=== PATIENT | female | born 1975 | race Caucasian/White ===

== ENCOUNTER → 2024-12-16 08:52 | Outpatient (REF) | payer OTHER, SELFPAY | LOC: WDC 08:52 | DX: N63.11 Unspecified lump in the right breast, upper outer quadrant (principal) | CPT/HCPCS: 76642; 77062; 77066 ==

== ENCOUNTER 2025-03-20 15:07 | Emergency (ER) | payer OTHER, SELFPAY ==
[2025-03-20 15:11] VITALS: BP 129/89
[2025-03-20 15:41] LABS: Hematocrit 37.9 % (37.0-47.0); Hemoglobin 12.5 g/dL (12.0-16.0); Mean Corp Hgb Conc. 33.0 g/dL (33.0-37.0); Mean Corpuscular Volume 88.6 fL (81.0-99.0); Nucleated Red Blood Cells % 0 %; Platelet Count 264 10^3/uL (130-400); Red Cell Dist. Width 11.7 % (11.5-14.5)
[2025-03-20 15:51] LABS: INR 0.96; PT 13.1 Sec (11.4-14.6)
[2025-03-20 15:54] LABS: ALT (SGPT) 19 U/L (0-35); AST (SGOT) 24 U/L (14-36); Albumin 4.3 g/dl (3.5-5.0); Alkaline Phosphatase 75 U/L (38-126); Blood Urea Nitrogen 9 mg/dl (7-17); Calcium 8.5 mg/dl (8.4-10.2); Carbon Dioxide 23 mmol/L (22-30); Chloride 108 mmol/L (98-107); Glucose 98 mg/dl (70-99); Potassium 4.1 mmol/L (3.5-5.1); Sodium 136 mmol/L (135-145); Total Protein 6.8 g/dl (6.3-8.2); eGFR > 60.00
[2025-03-20 16:05] LABS: Troponin I < 0.012 ng/ml
[2025-03-20 18:00] VITALS: BP 133/94
[2025-03-20 18:54] VITALS: BMI 26.7
[2025-03-20 18:56] VITALS: BP 133/94
[2025-03-20 19:00] VITALS: BP 118/76
[2025-03-20] MEDS: NSS 1000 IV (19:17)
--- NOTE | 2025-03-20 20:42 | ED.GENMED ---
History of Present Illness
General
Chief Complaint: Heart Rate Problem
Source: patient
Exam Limitations: none
Time Seen by Provider: 03/20/25 18:05
Nursing documentation reviewed up to this point in time: agreed with
History of Present Illness
History of Present Illness:
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
On levothyroxine
Anxiety
PVCs, previous echocardiogram which was transthoracic showing 3.2 cm dilation of the ascending aorta
Presents for feeling racing heartbeat and irregular, starting about 2 or 3 days ago she started feeling like she was having extra beats. Today around noon while shopping with her daughter she started feeling even increased extra beats as well as
more heart racing and anxiety with SOB
no pleuritic pain
has not had DVT/PE, recent travel, hormone use, recent surgery
pt is worried because of her aortic dilation
she has no exertional symptoms
feels better now than she did earlier whree her racing hr felt like it lasted a few hours
she never checked her pulse
no passing out, nausea, vomiting
has anxiety, wasn't sure if this was anxiety attack
Past History
Past History
ED Past Medical History: Asthma, Other (sinus problems) and Other (Hypothyroidism)
ED Past Surgical History: Cholecystectomy, and Tonsilectomy
Social History
Tobacco: Non-smoker
Alcohol: None
Drug: None
Personal: Single
Living: with family
Family History
Family History: Asthma
Review of Systems
Review of Systems
Allergies reviewed?: Yes
All Other Systems: Not applicable
Phy Exam
Physical Exam
Physical Exam:
GENERAL: Alert , anxious mildly
EYE: pupils equal and reactive
NECK: Supple
ENT: o/p clr, mmm.
CARDIAC: Regular rate and rhythm .no tachycardia; VERY occ PVCs on monitor
no murmur
LUNGS: Clear breath sounds bilaterally, no acute respiratory distress, no wheezes/rales/rhonchi
ABDOMEN: Soft, without focal tenderness, no r/g, no cvat, normal bowel sounds
NEUROLOGICAL: Alert and oriented, no focal neuro deficits
SKIN: Warm and dry, skin intact.
MUSCULOSKELETAL: No edema, well perfused. neg yudi's sign
PSYCH: Normal and appropriate interaction. mildly anxious; in good spirits
Course
Orders/Labs/Results
Orders:
Orders
03/20/25 15:13
Electrocardiogram (*1) Urgent
Reason for Study: Chest Pain
EKG- Treatment ONCE
03/20/25 15:33
Complete Blood Count/With Diff Urgent
Comprehensive Metabolic Panel Urgent
Free T4 Urgent
Prothrombin Time Urgent
TSH Reflex To Free T4 Urgent
Comment: ADD ON
Troponin I Urgent
03/20/25 18:44
CT Chest Angio W/wo Iv Contras Urgent
Comment:
Reason For Exam: dilated aorta, palpitations, sob
0.9% Sodium Chloride 1000 ml [Nss] 1,000 ml IV BOLUS
03/20/25 20:43
Add On- LAB Urgent
Tests Added?: tsh free t4
Abnormal Lab Results
03/20/25
15:33
Abs Immat Gran (auto) 0.1 H 10^3/uL
(0-0.05)
Absolute Eos (auto) 0.8 H 10^3/uL
(0-0.7)
Immature Gran % 2.0 H %
(0-0.5)
Lymphocytes % 19.1 L %
(20.5-51.1)
Eosinophils % 11.4 H %
(0-6)
Chloride 108 H mmol/L
(98-107)
TSH (Reflex) 0.14 L uIU/ml
(0.47-4.68)
03/20/25 15:33
03/20/25 15:33
Vital Signs
Initial and Last Documented VS:
Initial Vital Signs
Temp Pulse Resp BP Pulse Ox
37.1 C 68 16 129/89 98
03/20/25 15:11 03/20/25 15:11 03/20/25 15:11 03/20/25 15:11 03/20/25 15:11
Last Documented Vital Signs
Temp Pulse Resp BP Pulse Ox
37.1 C 71 14 118/76 100
03/20/25 15:11 03/20/25 19:30 03/20/25 19:30 03/20/25 19:00 03/20/25 20:43
MDM/Problems Addressed
Differential Diagnosis Includes:
hyperthyroid, palpitations, anxiety, PE, aortic aneurysm
MDM/Problems Addressed:
49 y/o F
anxiety
aware of aortic dilation seen on TTE within the past year, just with plan for surveillance
pvcs
here with feelin of elevatd HR and anxiety with sob and palpitations
over the past few days but then worse the past few hours
no significant chest pain/bakc pain, no syncope
ekg is sinus rhythm with NEW RBBB; no ischemic changes
pulse ox normal
lungs clear
seems anxious
trop neg, lytes normal
tsh mildly low but free t4 nomral
probalby needs dec on her synthroid which could be contributing
cta shows that the measurements appear WNL without dilation
her previous ehco was not EVON
d/w ed attending
d/c home
*Pulse Oximetry
SaO2: 100
Oxygen Mode of Delivery: Room air
Patient hypoxic: no (98)
*Critical Care Note
Total Time (30-74mins, 75-104mins- exclusive of procedures): Not Applicable
ED Attending Note
-
Portions of this chart may have been created with voice recognition software.� Occasional wrong word or��sound alike� substitutions may have occurred due to the inherent limitations of voice recognition software.
Discharge Plan
Departure
Patient Disposition: Home (Routine Discharge)
Date of Disposition: 03/20/25
Time of Disposition: 20:13
Patient with high blood pressure during this ER visit?: No
Condition: Fair
Covid-19: Not Applicable
Discharge Problem:
Palpitations
Instructions: Palpitations (DC)
Prescriptions:
No Action
albuterol sulfate 2.5 MG/3 ML solution for nebulization
2.5 mg inhalation R Q4HPRN PRN (Reason: as needed)
vit-iron fum-folic ac [ Tablet] 1 EACH tablet
1 tab PO DAILY
albuterol sulfate 90 MCG/PUFF HFA aerosol inhaler
1 - 2 puff inhalation R Q4HPRN PRN (Reason: wheezing) Qty: 1 0RF
budesonide-formoterol [Symbicort] 1 PUFF HFA aerosol inhaler
2 puff inhalation BID
fluticasone propionate 1 SPRAY spray,suspension
1 spray intranasal DAILYPRN PRN (Reason: allergies)
citalopram 10 MG tablet
10 mg PO HS
levothyroxine 50 MCG tablet
50 mcg PO DAILY AT 0700
loratadine 10 MG tablet
10 mg PO DAILY
fluocinonide-emollient [Fluocinonide-E] 60 GM cream
60 gm TP QID Qty: 60 0RF
Rx Instructions:
APPLY A THIN LAYER TO AFFECTED AREA 2-4 TIMES A DAY
Referrals:
Sosa Varghese MD [Family Provider]
Activity Restrictions/Additional Instructions:
YOUR CAT SCAN WAS REASSURING THAT YOU DO NOT HAVE SIGNFICIANT DILATION OF YOUR AORTA
YOU HAVE HAD A COUPLE OF EXTRA BEATS (CALLED PVCs) WHICH ARE USUALLY BENIGN
BUT YOU SHOULD CALL YOUR VALVE GRINDER FOR FOLLOW UP
THEY MAY WANT TO HAVE YOU WEAR A MONITOR TO SEE HOW OFTEN YOU ARE HAVING THE EXTRA BEATS
STAY HYDRATED
RETURN FOR ANY CONCERNS
YOU CAN TAKE A XANAX TONIGHT NEEDED
Interventions
Interventions:
*Risk Screen - Suicide Last Done: 03/20/25 15:11
*General Assessment Last Done: 03/20/25 15:11
*Neglect/Abuse Screening Last Done: 03/20/25 15:11
*ED- Fall Risk Assessment Last Done: 03/20/25 18:56
*ED COVID-19 Vaccine History Last Done: 03/20/25 18:56
*Nursing Disposition Last Done: 03/20/25 20:46
ED- Cardiac Assessment Last Done: 03/20/25 19:10
ED- Pulmonary Assessment Last Done: 03/20/25 19:10
Discharge Date and Time
Discharge Date/Time: 03/20/25 20:46
Print Language: JAPANESE
== END 2025-03-20 20:46 | disposition home or self-care (01) ==
LOC: EMR 15:07
PROVIDERS: EMERGENCY PHYSICIAN Emergency Medicine; FAMILY PHYSICIAN Internal Medicine
DX: R00.2 Palpitations (principal); R06.02 Shortness of breath; I77.819 Aortic ectasia, unspecified site; E06.3 Autoimmune thyroiditis; F41.9 Anxiety disorder, unspecified; Z79.899 Other long term (current) drug therapy; J45.909 Unspecified asthma, uncomplicated; Z90.49 Acquired absence of other specified parts of digestive tract; I45.10 Unspecified right bundle-branch block; Z88.6 Allergy status to analgesic agent; Z91.048 Other nonmedicinal substance allergy status
CPT/HCPCS: 99284; 96360; 71275; 80053; 84439; 84443; 84484; 85025; 85610; 93005; Q9967